=== PATIENT | female | born 1965 ===

== ENCOUNTER 2017-09-13 13:03 | Emergency (ER) | payer OTHER ==
[~2017-09-13] VITALS: Ht 154.9 cm; Wt 77.1 kg
[2017-09-13] MEDS ORDERED: HYZAAR 100-12.1 EACH (13:19)
[2017-09-13] MEDS ORDERED: NOVOLOG (13:20)
[2017-09-13] MEDS ORDERED: HUMULIN N100 UNIT/2 (13:20)
[2017-09-13] MEDS ORDERED: TIROSINT25 MCG (13:21)
== END 2017-09-13 20:06 | disposition home or self-care (01) ==
LOC: ER 13:03
DX: K29.00 Acute gastritis without bleeding (principal); F06.4 Anxiety disorder due to known physiological condition